=== PATIENT | female | born 1985 | race Caucasian/White ===

== ENCOUNTER → 2016-10-17 23:02 | Emergency (ER) | payer OTHER ==
[~2016-10-17 23:02] MED LIST: ALBUTEROL17 GM INH; AURALGAN EAR DR14 ML OT; CIPRO PO; MEDROL DOSEPAK4 MG PO; METRONIDAZOLE PO; NO MEDICATIONS; VOLTAREN75 MG PO; ZOFRAN ODT4 MG PO; ZYRTEC10 M2 PO
== END | disposition left against medical advice (07) ==
LOC: CED 23:02
DX: Z53.21 Procedure and treatment not carried out due to patient leaving prior to being seen by health care provider (principal)